=== PATIENT | female | born 1960 | race Caucasian/White ===

== ENCOUNTER → 2022-09-22 08:48 | Outpatient (BNVA) | payer BC, SELFPAY | PROVIDERS: PCP Internal Medicine; Visit Provider Psychiatry & Neurology Neurology | DX: Z13.89 Encounter for screening for other disorder (principal) ==

== ENCOUNTER 2025-02-21 08:27 | Outpatient (AMB) | payer BC, SELFPAY ==
--- NOTE | 2025-02-21 08:30 | A.OFFVIS_ITS ---
Vital Signs 02/21/25 08:35 Weight 135 lb BP 130/74 Blood Pressure Location Lt brachial Position Sitting Pulse 56 Pulse Source Pulse Oximeter Pulse Oximetry (%) 99 Oxygen Delivery Method Room Air Intake Visit Reasons: Follow up Intake Note: Patient presents for follow up Left acoustic neuroma. Accompanied by: Self / Same As Patient Allergies sufa Allergy (Severe, Uncoded 09/22/22 09:01) Hives Medication List - Last Reconciled 02/21/25 by Catina Rowell MD atenolol (Tenormin) 25 mg PO DAILY olmesartan 20 mg PO DAILY oxcarbazepine 600 mg PO BID simvastatin 10 mg PO BEDTIME HPI Comments Details: 62y/o female with left acoustic neuroma, seizures,CALI( mild Not on CPAP ) comes for follow up after 2 1/2 years.2months ago she had the flu and had high fever. she had 1 episode of aura - out of body experience . No seizures. she could hear people around her and the whole episode lasted less than 30 seconds/ Her last MRI Brain ( Jul 2024 ) did not show increase in size. She follows up with Dr. Trejo at [facility] - radiation oncologist. He suggested 2 year follow up. No seizures since 2019.she still has left face twitching - better now. Left ear pain is better- she has occasional stabbing pain. sleep is good [facility] Medical History Seizures Lumbar disc disease Obstructive sleep apnea Generalized headaches GERD (gastroesophageal reflux disease) Hyperlipidemia HTN (hypertension) Left acoustic neuroma Surgical History History of back surgery History of melanoma excision Family History Mother Brain tumor Father Lung cancer Social History Alcohol intake: current Patient Tobacco Use Status: Never used Tobacco Physical Exam Vital Signs: Last Vital Signs Pulse 56 02/21/25 08:35 BP 130/74 02/21/25 08:35 Pulse Ox 99 02/21/25 08:35 Oxygen Delivery Method Room Air 02/21/25 08:35 Const General: cooperative, healthy appearing, comfortable and no acute distress Nutritional Appearance: average body habitus and well nourished Orientation/consciousness: patient oriented x3 Limitations: no limitations HEENT Head: Yes normal to inspection Neuro General: patient oriented x3, gait normal, tone normal, moves all extremities and no focal motor deficits Cranial nerves: Yes Facial sensation intact/muscles of mastication intact, Yes Bilaterally intact EOM present, Yes Nystagmus not present, Yes Normal facial strength present and Yes Midline tongue present Cognition (Neuro): normal cognition Gait exam (Neuro): Normal gait present Motor exam (neuro): 5/5 motor strength present throughout, no tremor noted and Normal motor muscle tone present throughout Deep tendon reflexes (DTR's): Right triceps reflex intensity grade: 2+, Left triceps reflex intensity grade: 2+, Rt Biceps (C5, C6): 2+, Left biceps reflex intensity grade: 2+, Right brachioradialis reflex intensity grade: 2+, Left brachioradialis reflex intensity grade: 2+, Right patellar reflex intensity grade: 3+ and Left patellar reflex intensity grade: 3+ Coordination: [id number] test normal Assessment & Plan Assessment & Plan (1) Left acoustic neuroma: Code(s): D33.3 - Benign neoplasm of cranial nerves Category: Medical (2) Seizures: Comment: breakthrough aura likley related to flu and high fever . Code(s): R56.9 - Unspecified convulsions Category: Medical (3) Obstructive sleep apnea: Code(s): G47.33 - Obstructive sleep apnea (adult) (pediatric) Category: Medical Plan Continue oxcarbamazepine 600mg bid- compliance stressed suggested magnesium at bedtime Consider CPAP- if symptoms worsen- sleep is better since she retired. F/u MRI in 2 years labs done at [facility] Magnesium glycinate 400mg qhs Medications: Refilled oxcarbazepine 600 mg PO BID 180 tabs 4RF Coding Level of Care Code Est Pt Level 4 (32180) Complex EM visit Add On G2211 Diagnoses Left acoustic neuroma D33.3 Seizures R56.9 Obstructive sleep apnea G47.33
[2025-02-21 08:35] VITALS: BP 130/74; PULSE 56; O2SAT 99
== END 2025-02-21 09:01 | disposition home or self-care (01) ==
LOC: HO.HSMS 08:28
PROVIDERS: PCP Internal Medicine; Visit Provider Psychiatry & Neurology Neurology
DX: D33.3 Benign neoplasm of cranial nerves (principal); R56.9 Unspecified convulsions; G47.33 Obstructive sleep apnea (adult) (pediatric)
CPT/HCPCS: 99214